=== PATIENT | female | born 1955 | race Caucasian/White ===

== ENCOUNTER → 2016-12-15 | Outpatient (CLI) | payer BC | LOC: LAB 05:58 | DX: R25.2 Cramp and spasm (principal) ==

== ENCOUNTER → 2016-12-17 | Outpatient (CLI) | payer BC | LOC: LAB 05:59 | DX: E87.1 Hypo-osmolality and hyponatremia (principal) ==

== ENCOUNTER → 2016-12-24 | Outpatient (CLI) | payer BC | LOC: LAB 06:02 | DX: E87.1 Hypo-osmolality and hyponatremia (principal) ==

== ENCOUNTER → 2016-12-31 | Outpatient (CLI) | payer BC | LOC: LAB 06:02 | DX: Z00.00 Encounter for general adult medical examination without abnormal findings (principal); E55.9 Vitamin D deficiency, unspecified; Z11.51 Encounter for screening for human papillomavirus (HPV) ==

== ENCOUNTER → 2017-10-13 | Outpatient (CLI) | payer BC ==
[2017-10-13 08:19] LABS: EOS # 0.2 (0.04-0.40); EOS % 2.4 % (1.0-5.0); HEMATOCRIT 37.1 % (37.0-47.0); HEMOGLOBIN 12.3 g/dL (12.5-16.0); MEAN CELL VOLUME 86 fl (78-100); MEAN CORPUSCULAR HEMOGLOBIN 28 pg (27-31); MEAN CORPUSCULAR HGB CONC 33 g/dL (33-37); MEAN PLATELET VOLUME 9.2 fl (7.4-10.4); MONO # 0.5 (0.20-0.80); NEU # 4.7 (1.40-6.50); PLATELET COUNT 286 K/mm3 (130-400); RED BLOOD COUNT 4.34 M/mm3 (4.10-5.30); RED CELL DISTRIBUTION WIDTH 13.6 % (11.5-14.5); WHITE BLOOD COUNT 7.4 K/mm3 (4.8-10.8)
[2017-10-13 08:34] LABS: ALBUMIN 4.1 g/dL (3.5-5.0); CALCIUM 9.3 mg/dL (8.4-10.2); POTASSIUM 3.9 mmol/L (3.6-5.0); TOTAL BILIRUBIN 0.7 mg/dL (0.2-1.3); TOTAL PROTEIN 7.5 g/dL (6.3-8.2)
[2017-10-13 08:40] LABS: PH-URINE 6.5 (5.0 - 8.0); URINE APPEARANCE CLEAR; URINE BILIRUBIN NEGATIVE (NEGATIVE); URINE BLOOD NEGATIVE (NEGATIVE); URINE COLOR YELLOW; URINE GLUCOSE NEGATIVE (NEGATIVE); URINE KETONE NEGATIVE (NEGATIVE); URINE LEUKOCYTE ESTERASE TRACE (NEGATIVE); URINE NITRATE NEGATIVE (NEGATIVE); URINE PROTEIN(semi-quant) TRACE mg/dL (NEGATIVE); URINE UROBILINOGEN NORMAL (NORMAL); URINE WBC 0-1 /hpf (0-3)
[2017-10-13 23:57] LABS: HEPATITIS C VIRUS ANTIBODY Negative (())
== END ==
LOC: LAB 07:48
PROVIDERS: Internal Medicine
DX: Z11.59 Encounter for screening for other viral diseases (principal); Z00.00 Encounter for general adult medical examination without abnormal findings; E55.9 Vitamin D deficiency, unspecified

== ENCOUNTER 2017-12-30 20:46 | Emergency (ER) | payer BC ==
[~2017-12-30] VITALS: Ht 154.9 cm; Wt 61.4 kg
[2017-12-30] MEDS ORDERED: LISINOPRIL40 MG PO (20:56)
[2017-12-30] MEDS ORDERED: ASPIRIN E.C. 8181 MG PO (20:57)
[2017-12-30] MEDS ORDERED: VITAMIN D32000 UNI1 PO (20:57)
[2017-12-30] MEDS ORDERED: SINGULAIR PO (20:58)
[2017-12-30] MEDS ORDERED: RED YEAST RICE600 M1 PO (20:58)
[2017-12-30] MEDS ORDERED: MEGARED OMEGA-1 EAC1 PO (20:58)
[2017-12-30] MEDS ORDERED: ZYRTEC10 M3 PO (20:59)
[2017-12-30] MEDS ORDERED: AMOXICILLIN875 MG PO (21:50)
[2017-12-30 22:21] VITALS: BP 157/98
== END 2017-12-30 22:21 | disposition home or self-care (01) ==
LOC: ED 20:46
DX: J20.9 Acute bronchitis, unspecified (principal); H66.002 Acute suppurative otitis media without spontaneous rupture of ear drum, left ear; J06.9 Acute upper respiratory infection, unspecified; Z88.2 Allergy status to sulfonamides; Z79.82 Long term (current) use of aspirin; I10 Essential (primary) hypertension

== ENCOUNTER → 2018-10-12 | Outpatient (CLI) | payer BC ==
[~2018-10-12] MED LIST: AMOXICILLIN875 MG PO; ASPIRIN E.C. 8181 MG PO; LISINOPRIL40 MG PO; MEGARED OMEGA-1 EAC1 PO; RED YEAST RICE600 M1 PO; SINGULAIR PO; VITAMIN D32000 UNI1 PO; ZYRTEC10 M3 PO
[2018-10-12 07:39] LABS: ALBUMIN 4.3 g/dL (3.5-5.0); CALCIUM 9.6 mg/dL (8.4-10.2); POTASSIUM 4.3 mmol/L (3.6-5.0); TOTAL BILIRUBIN 0.4 mg/dL (0.2-1.3); TOTAL PROTEIN 7.7 g/dL (6.3-8.2)
[2018-10-12 07:41] LABS: PH-URINE 7.5 (5.0 - 8.0); URINE APPEARANCE CLOUDY; URINE BILIRUBIN NEGATIVE (NEGATIVE); URINE BLOOD NEGATIVE (NEGATIVE); URINE COLOR YELLOW; URINE GLUCOSE NEGATIVE (NEGATIVE); URINE KETONE NEGATIVE (NEGATIVE); URINE LEUKOCYTE ESTERASE 1+ (NEGATIVE); URINE MUCUS PRESENT (NOT PRESENT); URINE NITRATE NEGATIVE (NEGATIVE); URINE PROTEIN(semi-quant) TRACE mg/dL (NEGATIVE); URINE UROBILINOGEN NORMAL (NORMAL); URINE WBC 16-30 /hpf (0-3)
[2018-10-12 08:25] LABS: EOS # 0.2 (0.04-0.40); EOS % 4.1 % (1.0-5.0); HEMATOCRIT 39.8 % (37.0-47.0); HEMOGLOBIN 13.1 g/dL (12.5-16.0); MEAN CELL VOLUME 87 fl (78-100); MEAN CORPUSCULAR HEMOGLOBIN 29 pg (27-31); MEAN CORPUSCULAR HGB CONC 33 g/dL (33-37); MEAN PLATELET VOLUME 10.4 fl (7.4-10.4); MONO # 0.4 (0.20-0.80); NEU # 1.7 (1.40-6.50); PLATELET COUNT 223 K/mm3 (130-400); RED BLOOD COUNT 4.58 M/mm3 (4.10-5.30); RED CELL DISTRIBUTION WIDTH 13.6 % (11.5-14.5); WHITE BLOOD COUNT 4.3 K/mm3 (4.8-10.8)
== END ==
LOC: LAB 06:53
PROVIDERS: Internal Medicine
DX: Z00.00 Encounter for general adult medical examination without abnormal findings (principal); E55.9 Vitamin D deficiency, unspecified; M85.80 Other specified disorders of bone density and structure, unspecified site

== ENCOUNTER → 2019-01-09 | Outpatient (CLI) | payer BC ==
[2019-01-09 07:29] LABS: ALBUMIN 4.4 g/dL (3.5-5.0); CALCIUM 9.4 mg/dL (8.4-10.2); POTASSIUM 4.2 mmol/L (3.6-5.0); TOTAL BILIRUBIN 0.5 mg/dL (0.2-1.3)
== END ==
LOC: LAB 06:50
PROVIDERS: Internal Medicine
DX: E78.00 Pure hypercholesterolemia, unspecified (principal)

== ENCOUNTER → 2019-01-30 | Outpatient (CLI) | payer BC ==
[2019-01-30 07:52] LABS: ALBUMIN 4.2 g/dL (3.5-5.0); CALCIUM 9.2 mg/dL (8.4-10.2); POTASSIUM 3.9 mmol/L (3.6-5.0); TOTAL BILIRUBIN 0.4 mg/dL (0.2-1.3); TOTAL PROTEIN 7.5 g/dL (6.3-8.2)
== END ==
LOC: LAB 07:26
PROVIDERS: Internal Medicine
DX: E78.00 Pure hypercholesterolemia, unspecified (principal)

== ENCOUNTER → 2019-04-17 | Outpatient (CLI) | payer BC ==
[2019-04-17 08:23] LABS: ALBUMIN 3.8 g/dL (3.4-4.8); CALCIUM 9.5 mg/dL (8.3-10.5); POTASSIUM 3.7 mmol/L (3.5-5.1); TOTAL BILIRUBIN 0.4 mg/dL (0.2-1.2)
== END ==
LOC: LAB 07:09
PROVIDERS: Internal Medicine
DX: E78.49 Other hyperlipidemia (principal)

== ENCOUNTER → 2019-10-23 | Outpatient (CLI) | payer BC ==
[2019-10-23 06:59] LABS: EOS # 0.2 (0.04-0.40); EOS % 3.5 % (1.0-5.0); HEMATOCRIT 38.8 % (37.0-47.0); HEMOGLOBIN 12.5 g/dL (12.5-16.0); LYMPH# 1.6 (1.50-4.00); MEAN CELL VOLUME 88 fl (78-100); MEAN CORPUSCULAR HEMOGLOBIN 28 pg (27-31); MEAN CORPUSCULAR HGB CONC 32 g/dL (33-37); MEAN PLATELET VOLUME 9.9 fl (7.4-10.4); MONO # 0.4 (0.20-0.80); NEU # 2.1 (1.40-6.50); PLATELET COUNT 220 K/mm3 (130-400); RED CELL DISTRIBUTION WIDTH 13.8 % (11.5-14.5); WHITE BLOOD COUNT 4.3 K/mm3 (4.8-10.8)
[2019-10-23 07:35] LABS: URINE APPEARANCE CLEAR; URINE BILIRUBIN NEGATIVE (NEGATIVE); URINE BLOOD TRACE (NEGATIVE); URINE COLOR YELLOW; URINE GLUCOSE NEGATIVE (NEGATIVE); URINE KETONE NEGATIVE (NEGATIVE); URINE LEUKOCYTE ESTERASE 1+ (NEGATIVE); URINE MUCUS PRESENT (NOT PRESENT); URINE NITRATE NEGATIVE (NEGATIVE); URINE PROTEIN(semi-quant) NEGATIVE (NEGATIVE); URINE UROBILINOGEN NORMAL (NORMAL)
[2019-10-23 07:47] LABS: CALCIUM 9.7 mg/dL (8.3-10.5)
[2019-10-23 07:50] LABS: TOTAL BILIRUBIN 0.4 mg/dL (0.2-1.2)
== END ==
LOC: LAB 06:23
PROVIDERS: Internal Medicine
DX: Z13.220 Encounter for screening for lipoid disorders (principal); Z13.29 Encounter for screening for other suspected endocrine disorder; Z00.00 Encounter for general adult medical examination without abnormal findings; E55.9 Vitamin D deficiency, unspecified

== ENCOUNTER → 2020-10-24 | Outpatient (CLI) | payer MEDICARE, BC ==
[2020-10-24 07:33] LABS: POTASSIUM 4.1 mmol/L (3.5-5.1)
[2020-10-24 07:34] LABS: CALCIUM 9.4 mg/dL (8.3-10.5)
[2020-10-24 07:35] LABS: TOTAL PROTEIN 7.4 g/dL (6.2-8.1)
[2020-10-24 07:37] LABS: TOTAL BILIRUBIN 0.4 mg/dL (0.2-1.2)
[2020-10-24 07:50] LABS: EOS # 0.2 (0.04-0.40); EOS % 3.3 % (1.0-5.0); HEMATOCRIT 38.6 % (37.0-47.0); HEMOGLOBIN 12.4 g/dL (12.5-16.0); LYMPH# 1.9 (1.50-4.00); MEAN CELL VOLUME 88 fl (78-100); MEAN CORPUSCULAR HEMOGLOBIN 28 pg (27-31); MEAN CORPUSCULAR HGB CONC 32 g/dL (33-37); MEAN PLATELET VOLUME 10.2 fl (7.4-10.4); MONO # 0.5 (0.20-0.80); NEU # 2.1 (1.40-6.50); PLATELET COUNT 222 K/mm3 (130-400); RED BLOOD COUNT 4.39 M/mm3 (4.10-5.30); RED CELL DISTRIBUTION WIDTH 13.5 % (11.5-14.5); WHITE BLOOD COUNT 4.5 K/mm3 (4.8-10.8)
[2020-10-24 08:20] LABS: URINE APPEARANCE CLEAR; URINE BILIRUBIN NEGATIVE (NEGATIVE); URINE BLOOD NEGATIVE (NEGATIVE); URINE COLOR YELLOW; URINE GLUCOSE NEGATIVE (NEGATIVE); URINE KETONE NEGATIVE (NEGATIVE); URINE LEUKOCYTE ESTERASE NEGATIVE (NEGATIVE); URINE NITRATE NEGATIVE (NEGATIVE); URINE PROTEIN(semi-quant) NEGATIVE (NEGATIVE); URINE UROBILINOGEN NORMAL (NORMAL)
== END ==
LOC: LAB 07:06
PROVIDERS: Internal Medicine
DX: E78.5 Hyperlipidemia, unspecified (principal); M81.0 Age-related osteoporosis without current pathological fracture; E55.9 Vitamin D deficiency, unspecified; I10 Essential (primary) hypertension

== ENCOUNTER → 2020-12-13 | Outpatient (CLI) | payer MEDICARE, BC | LOC: LAB 08:28 | DX: N30.01 Acute cystitis with hematuria (principal) ==

== ENCOUNTER → 2020-12-19 | Outpatient (CLI) | payer MEDICARE, BC | LOC: RAD 08:18 → MAMMO 09:15 | DX: M85.80 Other specified disorders of bone density and structure, unspecified site (principal); U07.1 COVID-19 ==

== ENCOUNTER → 2021-01-28 | Outpatient (CLI) | payer MEDICARE, BC | LOC: MAMMO 09:06 | DX: Z12.31 Encounter for screening mammogram for malignant neoplasm of breast (principal) ==

== ENCOUNTER → 2021-10-01 | Outpatient (CLI) | payer MEDICARE, BC | LOC: LAB 19:38 | DX: N39.0 Urinary tract infection, site not specified (principal) ==

== ENCOUNTER → 2022-01-05 | Outpatient (CLI) | payer MEDICARE, BC | LOC: LAB 12:33 | DX: N39.0 Urinary tract infection, site not specified (principal) ==

== ENCOUNTER → 2022-02-04 | Outpatient (CLI) | payer MEDICARE, BC | LOC: MAMMO 02-03 10:00 | DX: Z12.31 Encounter for screening mammogram for malignant neoplasm of breast (principal) ==

== ENCOUNTER → 2022-07-09 | Outpatient (CLI) | payer MEDICARE, BC ==
[2022-07-09 07:31] LABS: ALBUMIN 4.1 g/dL (3.4-4.8)
[2022-07-09 07:34] LABS: TOTAL PROTEIN 7.1 g/dL (6.2-8.1)
[2022-07-09 07:36] LABS: TOTAL BILIRUBIN 0.5 mg/dL (0.2-1.2)
[2022-07-09 07:40] LABS: DIRECT BILIRUBIN 0.2 mg/dL (0.0-0.5)
== END ==
LOC: LAB 07:09
PROVIDERS: Internal Medicine Interventional Cardiology
DX: E78.5 Hyperlipidemia, unspecified (principal); Z79.899 Other long term (current) drug therapy

== ENCOUNTER → 2022-07-10 | Outpatient (CLI) | payer MEDICARE, BC ==
[2022-07-13 06:46] LABS: BASO # 0.05 K/mm3 (0.02-0.10); EOS # 0.12 K/mm3 (0.04-0.40); EOS % 1.9 % (1.0-5.0); HEMATOCRIT 35.4 % (37.0-47.0); HEMOGLOBIN 11.6 g/dL (12.5-16.0); LYMPH# 2.12 K/mm3 (1.50-4.00); MEAN CELL VOLUME 89 fl (78-100); MEAN CORPUSCULAR HEMOGLOBIN 29 pg (27-31); MEAN CORPUSCULAR HGB CONC 33 g/dL (33-37); MEAN PLATELET VOLUME 10.1 fl (7.4-10.4); MONO # 0.52 K/mm3 (0.20-0.80); NEU # 3.55 K/mm3 (1.40-6.50); PLATELET COUNT 248 K/mm3 (130-400); RED BLOOD COUNT 3.98 M/mm3 (4.10-5.30); RED CELL DISTRIBUTION WIDTH 12.8 % (11.5-14.5); WHITE BLOOD COUNT 6.4 K/mm3 (4.8-10.8)
[2022-07-13 06:50] LABS: POTASSIUM 4.4 mmol/L (3.5-5.1)
== END ==
LOC: LAB 16:59
PROVIDERS: Internal Medicine Interventional Cardiology
DX: E78.5 Hyperlipidemia, unspecified (principal); R93.1 Abnormal findings on diagnostic imaging of heart and coronary circulation; Z79.899 Other long term (current) drug therapy

== ENCOUNTER 2022-07-22 10:20 | Emergency (ER) | payer MEDICARE, BC ==
[~2022-07-22] VITALS: Wt 62.7 kg
[2022-07-22] MEDS ORDERED: ROSUVASTATIN CA40 MG PO (10:33)
[2022-07-22] MEDS ORDERED: METOPROLOL SUCC25 M1 PO (10:34)
[2022-07-22] MEDS ORDERED: AMLODIPINE BES2.5 MG PO (10:34)
[2022-07-22 10:52] LABS: BASO # 0.04 K/mm3 (0.02-0.10); EOS # 0.04 K/mm3 (0.04-0.40); EOS % 0.6 % (1.0-5.0); HEMATOCRIT 38.4 % (37.0-47.0); HEMOGLOBIN 12.8 g/dL (12.5-16.0); LYMPH# 1.15 K/mm3 (1.50-4.00); MEAN CELL VOLUME 87 fl (78-100); MEAN CORPUSCULAR HEMOGLOBIN 29 pg (27-31); MEAN CORPUSCULAR HGB CONC 33 g/dL (33-37); MEAN PLATELET VOLUME 9.7 fl (7.4-10.4); MONO # 0.37 K/mm3 (0.20-0.80); PLATELET COUNT 268 K/mm3 (130-400); RED BLOOD COUNT 4.41 M/mm3 (4.10-5.30); WHITE BLOOD COUNT 6.9 K/mm3 (4.8-10.8)
[2022-07-22 11:15] LABS: ALBUMIN 4.2 g/dL (3.4-4.8); POTASSIUM 3.8 mmol/L (3.5-5.1)
[2022-07-22 11:17] LABS: CALCIUM 9.6 mg/dL (8.3-10.5)
[2022-07-22 11:18] LABS: TOTAL PROTEIN 7.3 g/dL (6.2-8.1)
[2022-07-22 11:20] LABS: TOTAL BILIRUBIN 0.5 mg/dL (0.2-1.2)
[2022-07-22 12:11] VITALS: BP 140/86
== END 2022-07-22 12:10 | disposition home or self-care (01) ==
LOC: ED 10:20
PROVIDERS: Physician Assistant
DX: K21.9 Gastro-esophageal reflux disease without esophagitis (principal); I10 Essential (primary) hypertension; Z28.310 Unvaccinated for COVID-19

== ENCOUNTER → 2022-07-29 | Outpatient (CLI) | payer MEDICARE, BC ==
[~2022-07-29] MED LIST changes: +AMLODIPINE BES2.5 MG PO; +METOPROLOL SUCC25 M1 PO; +ROSUVASTATIN CA40 MG PO
== END ==
LOC: LAB 11:30
DX: N30.01 Acute cystitis with hematuria (principal); R30.9 Painful micturition, unspecified

== ENCOUNTER → 2022-07-31 | Outpatient (CLI) | payer MEDICARE, BC ==
[2022-07-31 15:03] LABS: HEMATOCRIT 37.6 % (37.0-47.0); HEMOGLOBIN 12.3 g/dL (12.5-16.0); MEAN PLATELET VOLUME 9.7 fl (7.4-10.4); RED BLOOD COUNT 4.26 M/mm3 (4.10-5.30)
[2022-07-31 15:14] LABS: POTASSIUM 3.9 mmol/L (3.5-5.1)
[2022-07-31 15:15] LABS: CALCIUM 9.8 mg/dL (8.3-10.5)
== END ==
LOC: LAB 14:43
PROVIDERS: Internal Medicine Interventional Cardiology
DX: I10 Essential (primary) hypertension (principal)

== ENCOUNTER → 2022-09-01 | Outpatient (CLI) | payer MEDICARE, BC | LOC: RAD 10:45 | DX: R31.0 Gross hematuria (principal); N39.0 Urinary tract infection, site not specified ==

== ENCOUNTER → 2023-02-19 | Outpatient (CLI) | payer MEDICARE, BC ==
[2023-02-19 07:59] LABS: BASO # 0.04 K/mm3 (0.02-0.10); EOS # 0.13 K/mm3 (0.04-0.40); EOS % 3.3 % (1.0-5.0); HEMATOCRIT 39.9 % (37.0-47.0); HEMOGLOBIN 12.9 g/dL (12.5-16.0); LYMPH# 1.57 K/mm3 (1.50-4.00); MEAN CELL VOLUME 90 fl (78-100); MEAN CORPUSCULAR HEMOGLOBIN 29 pg (27-31); MEAN CORPUSCULAR HGB CONC 32 g/dL (33-37); MONO # 0.33 K/mm3 (0.20-0.80); NEU # 1.82 K/mm3 (1.40-6.50); PLATELET COUNT 212 K/mm3 (130-400); RED BLOOD COUNT 4.42 M/mm3 (4.10-5.30); RED CELL DISTRIBUTION WIDTH 13.7 % (11.5-14.5); WHITE BLOOD COUNT 3.9 K/mm3 (4.8-10.8)
[2023-02-19 08:01] LABS: ALBUMIN 4.2 g/dL (3.4-4.8)
[2023-02-19 08:02] LABS: CALCIUM 9.6 mg/dL (8.3-10.5)
[2023-02-19 08:05] LABS: TOTAL BILIRUBIN 0.4 mg/dL (0.2-1.2)
[2023-02-19 08:10] LABS: MAGNESIUM 2.08 mg/dL (1.60-2.60)
[2023-02-19 09:38] LABS: ERYTHROCYTE SEDIMENTATION RATE 6 mm/hr (0-30)
== END ==
LOC: LAB 07:37
PROVIDERS: Internal Medicine
DX: Z12.39 Encounter for other screening for malignant neoplasm of breast (principal); Z12.11 Encounter for screening for malignant neoplasm of colon; E78.2 Mixed hyperlipidemia; M85.80 Other specified disorders of bone density and structure, unspecified site; I11.0 Hypertensive heart disease with heart failure; R20.2 Paresthesia of skin

== ENCOUNTER → 2024-03-08 | Outpatient (CLI) | payer MEDICARE, BC | LOC: MAMMO 08:15 | DX: Z12.31 Encounter for screening mammogram for malignant neoplasm of breast (principal) ==

== ENCOUNTER → 2024-03-08 | Outpatient (CLI) | payer MEDICARE, BC | LOC: LAB 08:18 | DX: Z12.11 Encounter for screening for malignant neoplasm of colon (principal); Z11.59 Encounter for screening for other viral diseases; I10 Essential (primary) hypertension; E78.2 Mixed hyperlipidemia; M85.80 Other specified disorders of bone density and structure, unspecified site; R73.9 Hyperglycemia, unspecified ==

== ENCOUNTER → 2025-02-20 | Outpatient (CLI) | payer MEDICARE, BC | LOC: LAB 09:10 | DX: Z12.11 Encounter for screening for malignant neoplasm of colon (principal); I10 Essential (primary) hypertension; E78.2 Mixed hyperlipidemia; M85.80 Other specified disorders of bone density and structure, unspecified site; R20.2 Paresthesia of skin ==